=== PATIENT | male | born 1970 | race Caucasian/White ===

== ENCOUNTER 2016-12-27 18:43 | Emergency (ER) | payer OTHER ==
[~2016-12-27] VITALS: Ht 177.8 cm; Wt 95.7 kg
[2016-12-27 18:59] VITALS: BP 158/92
== END 2016-12-27 19:51 | disposition home or self-care (01) ==
LOC: EME 18:43
DX: M79.605 Pain in left leg (principal); V43.62XA Car passenger injured in collision with other type car in traffic accident, initial encounter; Z86.2 Personal history of diseases of the blood and blood-forming organs and certain disorders involving the immune mechanism
CPT/HCPCS: 99281; 99283